=== PATIENT | female | born 1970 | race Caucasian/White ===

== ENCOUNTER 2025-06-05 12:38 | Emergency (ER) | payer SELFPAY ==
--- NOTE | ~2025-06-05 | XR_ITS ---
Lumbosacral Spine: AP and lateral views Clinical History: Pain Findings: The normal lordotic curve is maintained. The vertebral bodies and posterior elements are i ntact. The intervertebral disc spaces are preserved. There is moderate to advanced facet arthropathy throughout the lumbar spine. The sacroiliac joints are normally outlined. Impression: Extensive facet arthropathy, as above. Reviewed, dictated and finalized at location . Impression: Extensive facet arthropathy, as above.
[2025-06-05 13:06] VITALS: BP 156/86; PULSE 67; RESP 16; TEMP 36.7; O2SAT 96
--- NOTE | 2025-06-05 15:20 | ED.BACK ---
HPI - Back Pain/Injury General Chief Complaint: Back Pain/Injury Stated Complaint: back pain Time Seen by Provider: 06/05/25 13:01 History of Present Illness HPI Narrative: Patient is a 54-year-old female who presents ER with low back pain. Aggravated today while working at the [employer]. She has been having radiation down her left leg. She has tried taking Tylenol and ibuprofen over last couple weeks without improvement. No saddle anesthesia. She is still able to urinate and defecate. No additional concerns. Related Data Allergies Allergy/AdvReac Type Severity Reaction Status Date / Time cyclobenzaprine Allergy Mild Unknown Verified 06/05/25 13:09 diphenhydramine Allergy Mild Unknown Verified 06/05/25 13:09 TRAMADOL HCL Allergy Unknown Unknown Uncoded 06/05/25 13:09 Review of Systems Review of Systems: All systems reviewed & are unremarkable except as noted in HPI and below Constitutional: Constitutional: Reports no additional constitutional complaints Cardiovascular: Cardiovascular: Reports no additional cardiovascular complaints Respiratory: Respiratory: Reports no additional respiratory complaints Musculoskeletal: Musculoskeletal: Reports no additional musculoskeletal complaints [facility] Past Medical History Medical History (Updated 06/05/25 @ 15:22 by Antony Fleming MD) Closed right ankle fracture Surgical History Surgical History (Updated 11/06/19 @ 23:09 by Kaleigh Pierre) History of tubal ligation History of ankle surgery Right Social History Social History (Updated 11/06/19 @ 23:09 by Kaleigh Pierre) Smoking status: Current every day smoker Gender identity (if verbalized by the patient): Female Exam Narrative: GENERAL: Well-appearing, well-nourished, and in no acute distress. HEAD: Normocephalic, atraumatic. ENT: Mucous membranes moist. CHEST: Clear to auscultation. No respiratory distress. HEART: Regular rate and rhythm. Normal peripheral pulses. See back: No reproducible midline tenderness. Left SI tenderness. EXTREMITIES: Normal range of motion. No edema. SKIN: Warm, dry, no rash. NEURO: Alert and oriented x3. PSYCH: Normal mood and affect. Course Course Emergency Course: Degenerative changes on x-ray. Discussed treatment with anti-inflammatories muscle relaxers. Needs to establish care with PCP. Discharge. Vital Signs Vital signs: Vital Signs Temperature 98.1 F 06/05/25 13:06 Pulse Rate 67 06/05/25 13:06 Respiratory Rate 16 06/05/25 13:06 Blood Pressure 156/86 H 06/05/25 13:06 Pulse Oximetry 96 06/05/25 13:06 Oxygen Delivery Room Air 06/05/25 13:06 Temperature 98.1 F 06/05/25 13:06 Pulse Rate 67 06/05/25 13:06 Respiratory Rate 16 06/05/25 13:06 Blood Pressure 156/86 H 06/05/25 13:06 Pulse Oximetry 96 06/05/25 13:06 Oxygen Delivery Room Air 06/05/25 13:06 MDM - Back Pain/Injury Imaging Data Radiologist's impression: ITS Impressions Lumbar Spine X-Ray 06/05/25 13:54 Impression: Extensive facet arthropathy, as above. Discharge Plan Discharge Clinical Impression: Sciatica Patient Disposition: Home Condition: Stable Instructions: Sciatica (ED) Additional Instructions: Please return to the emergency department if you develop severe pain that is not controlled by pain medications or if you are unable to walk because of pain or weakness. Return to the emergency department immediately if you develop fevers, loss of bowel or bladder control (dribbling of urine or having accidents you wouldn't normally have), inability to urinate, numbness of your genital or anal area, or weakness/numbness of your legs or arms as these could all be signs of a serious medical emergency. Patient Language: Nepali Prescriptions: New cyclobenzaprine 10 mg tablet 10 mg PO TID PRN (Reason: muscle spasm) Qty: 20 0RF naproxen 375 mg tablet 375 mg PO BID Qty: 14 0RF Follow-up/Referrals: PHYSICIAN,MACHINE BOOKKEEPER [Primary Care Provider] - Dashawn Cary MD [Physician] - 1 Week
[2025-06-05] MEDS: KETOROLAC 30 MG/ML VIAL (*BKC) IM (16:04)
== END 2025-06-05 16:09 | disposition home or self-care (01) ==
PROVIDERS: Emergency Provider Emergency Medicine
DX: M54.42 Lumbago with sciatica, left side (principal); F17.200 Nicotine dependence, unspecified, uncomplicated
CPT/HCPCS: 72100; 96372; 99283; J1885